=== PATIENT | male | born 1965 | race Two or more races ===

== ENCOUNTER 2023-04-11 13:56 | Emergency (ER) | payer OTHER ==
[~2023-04-11] VITALS: Ht 180.3 cm; Wt 93.9 kg
[2023-04-11] MEDS ORDERED: ZITHROMAX500 MG PO (19:06)
[2023-04-11] MEDS ORDERED: MEDROLPACK (19:06)
[2023-04-11] MEDS ORDERED: BENZONATATE100 MG PO (19:07)
[2023-04-11] MEDS ORDERED: DOLOGESIC 500-1 EACH PO (19:07)
[2023-04-11 19:54] LABS: HEMATOCRIT 46.5 % (39.0-48.0); HEMOGLOBIN 16.1 g/dL (13-16.00); MEAN CELL VOLUME 87.2 fL (80.0-100.00); MEAN CORPUSCULAR HEMOGLOBIN 30.2 pg (27.00-32.0); MEAN CORPUSCULAR HGB CONC 34.6 g/dl (32.0-36.0); PLATELET COUNT 195 K/uL (150-450); RED BLOOD COUNT 5.34 M/uL (4.00-6.00); RED CELL DISTRIBUTION WIDTH 13.1 % (11.5-14.5)
[2023-04-11 20:40] LABS: ABG PH 7.387 (7.35-7.45); ABG PO2 78.4 mmHg (80-100); ABG pCO2 44.3 mmHg (35-45); BASE EXCESS 0.7 mmol/l; BICARBONATE 26.1 mmol/l (23-25); SaO2 95.3 %; Tco2 27.4 mmol/l; allen test SATISFACTORY; o2 21 %; puncture site RADIAL LEFT
[2023-04-11] MEDS ORDERED: BUDESONIDE0.5 MG/2 M IH (22:26)
[2023-04-11] MEDS ORDERED: LEVALBUTER1.25 MG/3 IH (22:26)
[2023-04-11] MEDS ORDERED: QC TUSSIN DM L118 ML PO (22:26)
== END 2023-04-11 22:42 | disposition home or self-care (01) ==
LOC: ER 13:57
PROVIDERS: Nurse Practitioner Family
DX: J06.9 Acute upper respiratory infection, unspecified (principal); Z88.6 Allergy status to analgesic agent